=== PATIENT | male | born 1955 | race Caucasian/White ===

== ENCOUNTER 2018-08-24 09:13 | Observation (INO) | payer OTHER ==
[2018-08-24] VITALS (7 sets, daily range): BP systolic 119–192; BP diastolic 57–102
[~2018-08-24] VITALS: Ht 175.3 cm; Wt 87.7 kg
[2018-08-24] MEDS ORDERED: LOSARTAN-HCTZ1 EAC2 PO (09:30)
[2018-08-24] MEDS ORDERED: LIVALO4 MG PO (09:30)
[2018-08-24] MEDS ORDERED: FENOPROFEN CAL600 MG PO (09:30)
[2018-08-24] MEDS ORDERED: ASPIRIN 81 MG CHEW TAB PO ONE (09:35)
[2018-08-24] MEDS ORDERED: ASPIRIN 81 MG CHEW TAB ONE (09:41)
[2018-08-24 09:54] LABS: BASOPHILS # (AUTO) 0.1 (0.0-0.1); BASOPHILS % 0.8 % (0.0-1.0); EOSINOPHILS # (AUTO) 0.1 (0.0-0.4); EOSINOPHILS % 2.1 % (0.0-6.0); HEMATOCRIT 44.6 % (38.2-49.6); HEMOGLOBIN 15.9 g/dL (14.0-18.0); MEAN CORPUSCULAR HEMOGLOBIN 31.5 pg (28-32); MEAN CORPUSCULAR HGB CONC 35.7 g/dL (31-35); MEAN CORPUSCULAR VOLUME 88.3 fL (81-99); MONOCYTES # (AUTO) 0.6 (0.2-0.8); MONOCYTES % 9.8 % (4.4-11.3); NEUTROPHILS # (AUTO) 3.5 (2.1-6.9); NEUTROPHILS % 55.4 % (38.7-80.0); PLATELET COUNT 317 x10e3/uL (140-360); RED BLOOD COUNT 5.05 x10e6/uL (4.3-5.7); RED CELL DISTRIBUTION WIDTH 12.8 % (11.7-14.4)
--- NOTE | 2018-08-24 09:57 | Diagnostic Imaging Report ---
EXAMINATION: CHEST 2 VIEWS INDICATION: Chest pain. Numbness on the left side. COMPARISON: None FINDINGS: PA and lateral views TUBES and LINES: None. LUNGS: Lungs are well inflated. Lungs are clear. There is no evidence of pneumonia or pulmonary edema. PLEURA: No pleural effusion or pneumothorax. HEART AND MEDIASTINUM: The cardiomediastinal silhouette is unremarkable. BONES AND SOFT TISSUES: No acute osseous lesion. Soft tissues are unremarkable. UPPER ABDOMEN: No free air under the diaphragm. IMPRESSION: No acute thoracic abnormality. Signed by: Dr. Florentin Downs M.D. on 08/24/2018 9:54 AM
[2018-08-24 09:59] LABS: INR 0.87; PROTHROMBIN TIME 12.3 seconds (11.9-14.5)
--- NOTE | 2018-08-24 09:59 | Diagnostic Imaging Report ---
Exam: Head CT without contrast History: Left-sided numbness Comparison studies: None Technique: Axial images were obtained from the skull base to the vertex. Coronal and sagittal images reconstructed from the axial data. Dose modulation, iterative reconstruction, and/or weight based adjustment of the mA/kV was utilized to reduce the radiation dose to as low as reasonably achievable. Radiation dose: Total DLP: 921 mGy*cm. Estimated effective dose: DLP x 0.015 Intravenous contrast: None Findings: Scalp: No abnormalities. Bones: No fractures, blastic or lytic lesions. Brain sulci: Appropriate for age. Ventricles: Normal in size and configuration. No hydrocephalus. Extra-axial spaces: No masses, no fluid collection. Parenchyma: No abnormal densities. No masses, acute hemorrhage, acute or chronic vascular insults. Sellar/suprasellar region: No abnormalities. Craniocervical junction: Patent foramen magnum. No Chiari one malformation. Incidental findings: Atherosclerotic calcifications in the carotid siphons. IMPRESSION: No acute intracranial abnormalities. Specifically, no mass, acute hemorrhage or acute cortical infarct. Signed by: Dr. Shantanu Knapp M.D. on 08/24/2018 9:56 AM
[2018-08-24 10:00] LABS: PARTIAL THROMBOPLASTIN TIME 25.8 seconds (23.8-35.5)
[2018-08-24 10:08] LABS: ALANINE AMINOTRANSFERASE 24 IU/L (0-55); ALBUMIN 3.6 g/dL (3.5-5.0); ALBUMIN/GLOBULIN RATIO 1.2 (0.8-2.0); ALKALINE PHOSPHATASE 97 IU/L (40-150); ANION GAP 8.8 mmol/L (8-16); BLOOD UREA NITROGEN 8 mg/dL (7-26); BUN/CREATININE RATIO 9 (6-25); CALCIUM 9.5 mg/dL (8.4-10.2); CARBON DIOXIDE 28 mmol/L (22-29); CHLORIDE 103 mmol/L (98-107); CREATINE KINASE 252 IU/L (30-200); CREATININE, SERUM 0.85 mg/dL (0.72-1.25); EST GLOMERULAR FILTRATION RATE > 60 ML/MIN (60-); GLUCOSE 130 mg/dL (74-118); POTASSIUM 3.8 mmol/L (3.5-5.1); SODIUM 136 mmol/L (136-145)
--- NOTE | 2018-08-24 11:00 | NUR ---
rec'd pt in rm 2 in walking rounds with keira morel for continuity of care
--- OUTSIDE RECORDS SUMMARY | 2018-08-24 11:11 | XMS REPORT ---
Author Author [facility] Address Unknown Phone Unavailable Care Team Providers Care Leather Dresser Name Role Phone Olga CAVAZOS Unavailable Unavailable Problems This patient has no known problems. Allergies, Adverse Reactions, Alerts This patient has no known allergies or adverse reactions. Medications This patient has no known medications. Results Test Description Test Time Test Comments Text Results Atomic Results Result Comments CHEST 2 VIEWS 2018-08-24 09:53:00 [place] [address] Patient Name: VEE CANELA MR #: [id number] : 1955 Age/Sex: 63/M Req #: [id number] [facility] Physician: Ordered by: TEMO CAVAZOS MD Report #: [id number] Location: ER Room/Bed: Procedure: [id number] DX/CHEST 2 VIEWS Exam Date: 08/24/18 Exam Time: 0940 REPORT STATUS: Signed EXAMINATION: CHEST 2 VIEWS INDICATION: Chest p ain. Numbness on the left side. COMPARISON: None FINDINGS: PA and lateral views TUBES and LINES: None. LUNGS: Lungs are well inflated. Lungs are clear. There is no evidence of pneumonia or pulmonary edema. PLEURA: No pleural effusion or pneumothorax. HEART AND MEDIASTINUM: The cardiomediastinal silhouette is unremarkable. BONES AND SOFT TISSUES: No acute osseous lesion. Soft tissues are unremarkable. UPPER ABDOMEN: No free air under the diaphragm. IMPRESSION: No acute thoracic abnormality. Signed by: Dr. Elisa Downs M.D. on 08/24/2018 9:54 AM Dictated By: ELISA DOWNS MD 3 Transcribed By: SEAN on 08/24/18953 COPY TO: TEMO CAVAZOS MD CT BRAIN WO 2018-08-24 09:53:00 [place] [address] Patient Name: VEE CANELA MR #: [id number] : 1955 Age/Sex: 63/M Req #: [id number] Adm Physician: Ordered by: TEMO CAVAZOS MD Report #: [id number] Location: Room/Bed: Procedure: [id number] CT/CT BRAIN WO Exam Date: 08/24/18 Exam Time: 929 REPORT STATUS: Signed Exam: Head CT without contrast History: Left-sided numbness Comparison studies: None Technique: Axial images were obtained from the skull base to the vertex. Coronal and sagittal images reconstructed from the axial data. Dose modulation, iterative reconstruction, and/or weight based adjustment of the mA/kV was utilized to reduce the radiation dose to as low as reasonably achievable. Radiation dose: Total DLP: 921 mGy*cm. Estimated effective dose: DLP x 0.015 Intravenous contrast: None Findings: Scalp: No abnormalities. Bones: No fractures, blastic or lytic lesions. Brain sulci: Appropriate for age. Ventricles: Normal in size and configuration. No hydrocephalus. Extra-axial spaces: No masses, no fluid collection. Parenchyma: No abnormal densities. No masses, acute hemorrhage, acute or chronic vascular insults. Sellar/suprasellar region: No abnormalities. Craniocervical junction: Patent foramen magnum. No Chiari one malformation. Incidental findings: Atherosclerotic calcifications in the carotid siphons. IMPRESSION: No acute intracranial abnormalities. Specifically, no mass, acute hemorrhage or acute cortical infarct. Signed by: Dr. Daily Knapp M.D. on 08/24/2018 9:56 AM Dictated By: DAILY KNAPP MD 5 Transcribed By: SEAN on 08/24/18955 COPY TO: TEMO CAVAZOS MD
[2018-08-24] MEDS: SODIUM CHLORIDE 0.9% 1000ML 1,000 ML IV SCH ×2 (11:37→19:12)
[2018-08-24 12:09] LABS: BILIRUBIN,URINE NEGATIVE (NEGATIVE); CLARITY,URINE CLEAR (CLEAR); COLOR,URINE YELLOW (YELLOW); KETONES,URINE NEGATIVE (NEGATIVE); LEUKOCYTE ESTERASE ,URINE NEGATIVE (NEGATIVE); NITRITE,URINE NEGATIVE (NEGATIVE); PROTEIN,URINE DIPSTICK NEGATIVE (NEGATIVE); URINE UROBILINOGEN 0.2 mg/dL (0.2 - 1)
[2018-08-24] MEDS ORDERED: HYDRALAZINE HCL 20 MG/ML VIAL IV PRN (12:15)
[2018-08-24] MEDS ORDERED: ACETAMINOPHEN 325 MG TAB PO PRN (12:15)
[2018-08-24] MEDS ORDERED: ONDANSETRON HCL INJ 2MG/ML 2ML 2 MG/ML VIAL IV PRN (12:15)
[2018-08-24 12:33] LABS: BACTERIA,URINE RARE /HPF
--- NOTE | 2018-08-24 13:10 | NUR ---
RECEIVED PT FROM ER. PT IS PLEASANT AND HAS EX- AT BEDSIDE. BED IS IN LOWEST POSITION, BED LOCKED, CALL LIGHT WITHIN REACH, ROOM FREE OF CLUTTER
--- NOTE | 2018-08-24 13:37 | Diagnostic Imaging Report ---
Exam: Brain MRI without IV contrast History: Left-sided numbness. Comparison studies: Same-day head CT 08/24/2018. Technique: Sagittal and axial T2 FS, axial DWI, axial T2*GRE, axial T1 FLAIR and axial coronal T2 FLAIR. Intravenous contrast: None Findings: Scalp: Normal in signal. No masses. Bone marrow: Normal in signal intensity. Brain sulci: Appropriate for age. Ventricles: Mild asymmetry of the temporal horns with the left temporal horn being slightly more prominent than in the left. Remaining ventricles are normal in size and configuration. Extra axial spaces: No mass, no fluid collection. Parenchyma: No mass, hemorrhage, acute ischemia or chronic cortical insults. Mild asymmetric dilatation of the anterior temporal horn of the left lateral ventricle possibly related to volume regional left medial temporal/hippocampal volume loss. Subtle increased T2 FLAIR signal in the left hippocampus may be artifactual or possibly reflect changes of hippocampal sclerosis. Suprasellar region: No abnormalities. Craniocervical junction: Patent foramen magnum. No Chiari malformation. Vessels: Normal flow-voids in the arteries and sinuses. IMPRESSION: 1. No acute ischemia or other acute intracranial abnormalities. 2. 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 Recommend correlation with history of seizures. Findings could be further evaluated with EEG as clinically warranted. Signed by: Dr. Shantanu Knapp M.D. on 08/24/2018 1:34 PM
[2018-08-24] MEDS ORDERED: FENOPROFEN CALCIUM 600 MG PO PRN (15:45)
--- NOTE | 2018-08-24 16:00 | NUR ---
PT TOOK LIVALO, HIS PERSONAL MEDICATION PER DENTON ROUSSEAU'S ORDER
[2018-08-24] MEDS: FAMOTIDINE 20 MG TAB PO SCH (17:31)
--- NOTE | 2018-08-24 19:16 | NUR ---
REPORT GIVEN TO PHYSICAL BIOCHEMIST NURSE. PT HAS NO COMPLAINTS. CALL LIGHT WITHIN REACH, BED LOCKED AND IN LOWEST POSITION, ROOM FREE FROM CLUTTER. FAMILY AT BEDSIDE
[2018-08-24 19:22] LABS: CREATINE KINASE 291 IU/L (30-200)
--- NOTE | 2018-08-24 20:00 | NUR ---
PATIENT'S BLOOD PRESSURE 158/90, HEART RATE 69. HYDRALAZINE ADMINISTERED ORDERED. HE WAS ASSISTED TO THE RESTROOM, HE'S NOW BACK IN BED WITHOUT DISTRESS. CALL LIGHT WITHIN EASY REACH, FAMILY MEMBERS AT THE BEDSIDE. MILD RIGHT FACIAL DROOP OBSERVED, ENVIRONMENTAL SPECIALIST STRENGTH SLIGHT WEAK TO THE RIGHT HAND COMPARED TO THE LEFT HAND.
--- NOTE | 2018-08-24 23:30 | NUR ---
PATIENT IS ASLEEP, HE'S EASY TO AROUSE. NO ACUTE DISTRESS OBSERVED, HIS IS PRESENT IN THE ROOM.
[2018-08-25] MEDS: SODIUM CHLORIDE 0.9% 1000ML 1,000 ML IV SCH ×2 (03:15→10:23)
--- NOTE | 2018-08-25 04:19 | NUR ---
NO DISTRESS OBSERVED, PATIENT DENIES PAIN. HE AMBULATES TO THE RESTROOM WITH GAIT VERY STEADY. CALL LIGHT WITHIN EASY REACH, HE'S INSTRUCTED TO CALL FOR ASSISTANCE NEEDED.
[2018-08-25 04:36] VITALS: BP 136/56
[2018-08-25 05:45] LABS: BASOPHILS # (AUTO) 0.1 (0.0-0.1); BASOPHILS % 0.7 % (0.0-1.0); EOSINOPHILS # (AUTO) 0.2 (0.0-0.4); EOSINOPHILS % 2.2 % (0.0-6.0); HEMATOCRIT 42.7 % (38.2-49.6); HEMOGLOBIN 14.6 g/dL (14.0-18.0); LYMPHOCYTES % 27.4 % (18.0-39.1); MEAN CORPUSCULAR HEMOGLOBIN 30.9 pg (28-32); MEAN CORPUSCULAR HGB CONC 34.2 g/dL (31-35); MEAN CORPUSCULAR VOLUME 90.5 fL (81-99); MONOCYTES % 13.2 % (4.4-11.3); NEUTROPHILS # (AUTO) 4.1 (2.1-6.9); NEUTROPHILS % 55.7 % (38.7-80.0); PLATELET COUNT 299 x10e3/uL (140-360); RED BLOOD COUNT 4.72 x10e6/uL (4.3-5.7); RED CELL DISTRIBUTION WIDTH 13.2 % (11.7-14.4)
[2018-08-25 06:00] LABS: CREATINE KINASE 194 IU/L (30-200)
[2018-08-25 06:20] LABS: MAGNESIUM 2.2 MG/DL (1.3-2.1); PHOSPHORUS 3.3 MG/DL (2.3-4.7)
[2018-08-25 06:22] LABS: FREE T4 (FREE THYROXINE) 0.84 ng/dL (0.9-1.8); THYROID STIMULATING HORMONE 1.786 uIU/mL (0.350-4.940)
[2018-08-25 06:23] LABS: ANION GAP 8.9 mmol/L (8-16); BLOOD UREA NITROGEN 10 mg/dL (7-26); BUN/CREATININE RATIO 12 (6-25); CALCIUM 9.1 mg/dL (8.4-10.2); CARBON DIOXIDE 27 mmol/L (22-29); CHLORIDE 104 mmol/L (98-107); CHOL/HDL RATIO 4.8 (3.9-4.7); CHOLESTEROL 221 MD/DL (0-199); CREATININE, SERUM 0.81 mg/dL (0.72-1.25); EST GLOMERULAR FILTRATION RATE > 60 ML/MIN (60-); GLUCOSE 109 mg/dL (74-118); HDL CHOLESTEROL 46 MG/DL (40-60); LDL CHOLESTEROL 121 MG/DL (60-130); POTASSIUM 3.9 mmol/L (3.5-5.1); SODIUM 136 mmol/L (136-145); TRIGLYCERIDES 272 MG/DL (0-149)
--- NOTE | 2018-08-25 07:00 | NUR ---
BEDSIDE SHIFT REPORT RECEIVED FROM TERRI RN. PT DENIES NEEDS AT THIS TIME.
[2018-08-25] MEDS: FAMOTIDINE 20 MG TAB PO SCH ×2 (07:48→16:55)
[2018-08-25 08:12] VITALS: BP 150/85
[2018-08-25 09:00] VITALS: BP 150/85
[2018-08-25] MEDS ORDERED: NON-FORMULARY MEDICATION (Losartan/Hydrochlorothiazide (Losartan-Hctz 100-12.5 Mg Tab) 1 T PO SCH (09:00)
[2018-08-25] MEDS ORDERED: ASPIRIN 325 MG TAB EC PO SCH (09:00)
[2018-08-25] MEDS ORDERED: PITAVASTATIN CALCIUM 4 MG PO SCH (09:00)
[2018-08-25 11:25] VITALS: BP 161/86
[2018-08-25] MEDS ORDERED: ONDANSETRON HCL 4 MG ORAL DISINTEGRATING TAB PO PRN (11:45)
--- NOTE | 2018-08-25 13:20 | NUR ---
Visit made by the Spiritual Care Department Pastoral Visitor, Iman Mcgraw. PV provided pastoral presence, prayer, hospitality, and supportive listening. Pastoral Visitor informed pt/family of the scope of [employer] and availability. ANGELITA CONDON [employer] Spiritual Care Department O: [phone] Pager: [phone] ([phone] number calling from)
[2018-08-25 16:26] VITALS: BP 139/73
[2018-08-25] MEDS ORDERED: PREDNISONE20 MG PO (17:42)
--- NOTE | 2018-08-25 23:50 | Consultation ---
DATE OF CONSULTATION: 08/25/2018 Neurology Consult Note HISTORY OF PRESENT ILLNESS: Mr. Queen is a 63-year-old right-hand dominant man with past medical history significant for hypertension and hyperlipidemia, admitted to [facility] on August 24, 2018, with right facial weakness suspicious for stroke. On the evening prior to admission, the patient reports experiencing twitching around both eyes, left greater than right. This twitching persisted for a few hours, but did gradually resolve. When the patient went to bed at 2200 on August 23, 2018, he was in his usual state of health. When the patient awoke at 0700 on August 24, 2018, he noted right-sided facial weakness and numbness. Mr. Queen reports blurred vision affecting both eyes, right greater than left and watering of both eyes. He does not report a change in taste. He does not report noises founding louder on his right side. The patient does not report dysarthria, aphasia, other weakness, other numbness, poor balance, impairment of gait, dizziness, or confusion associated with the above symptoms. Mr. Queen presented to the emergency center at [facility] on the morning of August 24, 2018, for further evaluation of his symptoms. Upon arrival in the emergency center, the patient was afebrile with a blood pressure of 189/106 mmHg and a pulse of 82 beats per minute. Documentation of the patient's neurological examination is unavailable for review at this time. A CT of the brain without contrast was performed, while the patient was in the emergency center. There was no evidence of recent large territorial ischemia or hemorrhage on this study. Mr. Queen was therefore admitted to [facility] under observation status for further evaluation of his symptoms. Mr. Queen has not experienced similar symptoms previously. He does not take aspirin, Plavix, or any anticoagulant medication daily. The only other neurological symptoms endorsed by the patient are chronic intermittent numbness and tingling of the right hand. REVIEW OF SYSTEMS: Blurred vision, right facial weakness and numbness, intermittent numbness and tingling of the right hand (chronic). PAST MEDICAL HISTORY: Hypertension, hyperlipidemia, prostate cancer, currently in remission. PAST SURGICAL HISTORY: None. PAST HOSPITALIZATIONS: Mr. Queen was hospitalized, status post a fall at work. FAMILY MEDICAL HISTORY: Hyperlipidemia. The patient's maternal grandmother from a gastrointestinal cancer. His father from alcoholic cirrhosis. SOCIAL HISTORY: Mr. Queen is . 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 The patient does not report current or prior tobacco, alcohol, or recreational drug use. HOME MEDICATIONS: Reviewed. Please see the list of home medications available in the electronic medical record. HOSPITAL MEDICATIONS: Reviewed. Please see the list of hospital medications available in the electronic medical record. ALLERGIES: CODEINE. NO KNOWN FOOD ALLERGIES. NO KNOWN ALLERGIES TO LATEX. NO KNOWN ALLERGIES TO IODINE OR OTHER CONTRAST MATERIALS. PHYSICAL EXAMINATION: VITAL SIGNS: Height 69 inches, weight 193 pounds, BMI 28.5 kg/m2, blood pressure 161/86 mmHg, pulse 66 beats per minute, respiratory rate 18 breaths per minute, and oxygen saturation 98% on room air. GENERAL: The patient is awake and alert, does not appear distressed. HEENT: Normocephalic and atraumatic. Pupils are equal, round, and reactive to light. Moist mucous membranes. NECK: Supple. No appreciable thyromegaly. No appreciable carotid bruits. CARDIOVASCULAR: S1, S2, regular rate and rhythm. No murmurs, rubs, or gallops. RESPIRATORY: Clear to auscultation bilaterally. No wheezes, rhonchi, or rales. EXTREMITIES: The skin is warm and dry. No clubbing, cyanosis, or edema. The posterior tibial and dorsalis pedis pulses are 2+ and symmetric. SKIN: No rashes or lesions. NEUROLOGIC: Memory/Attention: The patient is awake and alert, oriented to person, place, time, and situation. Cranial Nerves: Cranial nerve I - not tested. Cranial nerves II, III, IV, and - pupils are equal and round, reactive briskly to light (from 4 mm to 2 mm). Extraocular movements intact. No nystagmus. Cranial nerve V - sensation to light touch and pinprick is intact in the bilateral V1 through V3 distributions. Strength in the temporalis and masseter muscles are within normal limits. Cranial nerve VII - the face is asymmetric on the right as are all facial movements. Mild to moderate right peripheral facial weakness is present. Cranial nerve VIII - hearing is intact to finger rub bilaterally. Cranial nerves IX, X - the soft palate elevates equally and symmetrically. Cranial nerve XI - normal strength of the bilateral sternocleidomastoid and trapezius muscles. Cranial nerve XII - the tongue protrudes midline and moves symmetrically from [id number]-dkbe. Strength: Bulk is normal. Strength is 5/5 in the bilateral deltoids, biceps, triceps, wrist flexors and extensors, finger flexors and extensors, intrinsic hand muscles, hip flexors, knee flexors and extensors, ankle dorsiflexion and plantar flexion, and intrinsic foot muscles. Tone is normal. DTRs: Deep tendon reflexes are 2+ and symmetric at the triceps, biceps, brachioradialis, patellas, and Achilles. Plantar responses are flexor bilaterally. Sensation: Sensation is intact to light touch and pinprick in both arms and both legs. Cerebellar: Sjbvyr-htln-qpftmp and heel-ordoñez movements are intact without dysmetria or other impairment. Gait: Deferred. Speech: Spontaneous speech is normal without appreciable dysarthria or aphasia. Repetition is intact. Involuntary Movements: None. Pronator Drift: None. LABORATORY DATA: The most recent basic metabolic panel is unremarkable. A liver function panel collected on August 24, 2018 is unremarkable. With the exception of mildly elevated creatine kinase, cardiac enzymes are negative x3. Hemoglobin A1c 5.9. Total cholesterol 221, triglycerides 272, LDL cholesterol 121, and HDL cholesterol 46. TSH 1.786, free T4 of 0.84. The CBC with differential and platelets is unremarkable. A coagulation profile is within normal limits. A urinalysis is unremarkable. DIAGNOSTIC STUDIES: Electrocardiogram on 08/24/2018: Normal sinus rhythm at 73 beats per minute. Chest x-ray on 08/24/2018: No acute thoracic abnormality. CT of the brain without contrast on 08/24/2018: On my review, there is no evidence of recent or remote large territorial ischemia, hemorrhage, mass, or mass effect. Cerebral volumes are appropriate for age. There are no findings suggestive of chronic small vessel ischemic disease. Echocardiogram on 08/24/2018: Ejection fraction 50% to 55%. No significant valvular abnormalities are identified. Bilateral carotid artery ultrasound with Doppler on 08/24/2018: Atherosclerosis without hemodynamically significant stenosis at the bilateral carotid bulbs, carotid bifurcations, and internal carotid arteries. Flow is antegrade in the bilateral vertebral arteries. MRI of the brain without contrast on 08/25/2018: On my review, there is no evidence of recent or remote large territorial ischemia, hemorrhage, mass, or mass effect. Cerebral volumes are appropriate for age. There is questionable asymmetry of the temporal horns. There are no findings compatible with [id number] chronic small-vessel ischemic disease. ASSESSMENT AND PLAN: Mr. Queen is a 63-year-old right-hand dominant man with past medical history significant for hypertension and hyperlipidemia, admitted to [facility] on August 24, 2018, with right facial weakness and numbness. The patient's neurological examination is significant for mild to moderate right peripheral facial weakness. The patient's laboratory data and other diagnostic studies have been reviewed and are documented above. 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 The diagnosis was discussed in detail with the patient and his family members, who are at the bedside. Mr. Queen will be treated with a tapering dose of prednisone as prescribed. The patient was informed it may take 8 to 12 weeks for healing of the right facial nerve to occur. There are no other recommendations from the Neurology Service at this time. Mr. Queen may be discharged to home. TIME SPENT: 50 minutes. Dianna Edwards MD CP/GRACIELA /[id number] TUNDE
--- NOTE | 2018-08-26 01:16 | Discharge Summary ---
CONSULTING PHYSICIAN: Include Dr. Dianna Edwards. HISTORY OF PRESENT ILLNESS: Mr. Queen is a [id number]-male, who was last known well at 2200 on 08/23/2018 and initially experienced twitching at the left eyelid on the while at a baseball game as a spectator. This progressively worsened and the patient woke up with numbness on the left side of the face with drooling from the left corner of the mouth when brushing his teeth. He states he had no difficulty driving home from the game. Denied difficulty walking and had no falls or limb weakness. On the morning of the , he experienced dull pain in the left eye, but no twitching. PAST MEDICAL HISTORY: Significant for hypertension, prostate cancer, and hyperlipidemia. He had radiation for the prostate cancer. PAST SURGICAL HISTORY: Denies any past surgical history. FAMILY HISTORY: Significant for cirrhosis of the liver in his father and epileptic seizures in his brother. SOCIAL HISTORY: He lives with his . Denies any previous history of tobacco, alcohol, or illicit drugs. ALLERGIES: ONLY ALLERGY IS CODEINE. ADMITTING DIAGNOSES: Include: 1. 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 2. Hypertension. 3. Hyperlipidemia. DISCHARGE DIAGNOSES: Include: 1. Right Sommer's palsy. 2. Uncontrolled hypertension. 3. Hyperlipidemia. LABORATORY DATA: Admission wbc's 6.33, hemoglobin 15.9, hematocrit 44.6, platelets 317. PT 12.3, INR 0.87. Sodium 136, potassium 3.8, chloride 103, CO2 of 28, BUN 8, creatinine 0.85, GFR greater than 60, glucose 130. Creatinine kinase 252, troponin I less than 0.001. CK-MB 2.2. AST 20, ALT 24, alkaline phosphatase 97, total protein 6.5, albumin 3.6. These labs remain stable. Today on the day of discharge, BUN 10, creatinine 0.81, glucose 109, GFR greater than 60, phosphorus 3.3, magnesium 2.2, triglycerides 272, cholesterol 221, LDL 121, HDL 46. TSH 1.786, free T4 0.84. Hemoglobin A1c 5.9%. Chest x-ray showed no acute thoracic abnormality. CT of the brain showed no acute intracranial abnormalities. MRI of the brain was negative. Bilateral carotid doppler ultrasound showed evidence of carotid disease without significant carotid stenosis, some calcifications of the right and left ICA as well as the bulb and bifurcation. Echocardiogram done on August 24 showed ejection fraction of 50% to 55%. HOSPITAL COURSE: Per Neurology note, the patient admitted with right facial weakness and numbness, diagnosis of right Sommer's palsy. The patient can be discharged home on a tapering dose of oral steroids. He will be given tapering dose of prednisone 60 mg p.o. daily for 2 days, then 40 mg p.o. daily for 3 days, then 20 mg p.o. daily for 2 days, and 10 mg p.o. daily for 2 days. The patient can follow up with his PCP Dr. Farhan Nuñez, the patient's PCP in [place], [place] in 1 to 2 weeks. Continue cardiac diet. Vital signs on discharge, temperature 97.8, heart rate 75, blood pressure 161/86, respirations 18, oxygen saturation 97%. Activity as tolerated. Dictated by Caio Clemons NP MD CHEN Osorio/YONIL /[id number]
== END 2018-08-25 18:20 | disposition home or self-care (01) ==
LOC: ER 09:13 → ERHOLD 11:08 → IMCU 13:13
PROVIDERS: ADMIT Internal Medicine; ATTEND Internal Medicine
DX: G51.0 Bell's palsy (principal); I10 Essential (primary) hypertension; E78.5 Hyperlipidemia, unspecified; Z88.5 Allergy status to narcotic agent
CPT/HCPCS: 36415 ×2; 70450; 70551; 71046; 80048; 80053; 80061; 81001; 82550 ×2; 82553 ×2; 83036; 83735; 84100; 84439; 84443; 84484 ×2; 85025 ×2; 85610; 85730; 92526; 92610; 93005; 93306; 93880; 96374; 96376; 97161; 99284; G0378 ×2; J0360; J7030 ×2